=== PATIENT | male | born 1985 | race Caucasian/White ===

== ENCOUNTER 2022-09-16 10:31 | Outpatient (REF) | payer OTHER, SELFPAY | END 2022-09-16 10:32 | disposition home or self-care (01) | LOC: HO.BBR 10:31 | PROVIDERS: PCP Internal Medicine; Visit Provider Internal Medicine Gastroenterology | DX: Z13.89 Encounter for screening for other disorder (principal) ==

== ENCOUNTER 2022-09-30 10:07 | Outpatient (REF) | payer OTHER, SELFPAY | END 2022-09-30 10:08 | disposition home or self-care (01) | LOC: HO.BBR 10:07 | PROVIDERS: Visit Provider Internal Medicine Gastroenterology | DX: Z13.89 Encounter for screening for other disorder (principal) ==

== ENCOUNTER 2022-11-09 13:05 | Outpatient (REF) | payer OTHER, SELFPAY | END 2022-11-09 13:06 | disposition home or self-care (01) | LOC: HO.BBR 13:05 | PROVIDERS: PCP Internal Medicine; Visit Provider Internal Medicine Gastroenterology | DX: Z13.89 Encounter for screening for other disorder (principal) ==

== ENCOUNTER 2022-11-24 08:01 | Outpatient (REF) | payer OTHER, SELFPAY | END 2022-11-24 08:02 | disposition home or self-care (01) | LOC: HO.BBR 08:01 | PROVIDERS: Visit Provider Internal Medicine Gastroenterology | DX: Z13.89 Encounter for screening for other disorder (principal) ==

== ENCOUNTER 2022-12-07 08:59 | Outpatient (REF) | payer OTHER, SELFPAY | END 2022-12-07 09:00 | disposition home or self-care (01) | LOC: HO.BBR 08:59 | PROVIDERS: Visit Provider Internal Medicine Gastroenterology | DX: Z13.89 Encounter for screening for other disorder (principal) ==

== ENCOUNTER 2023-02-09 10:06 | Outpatient (REF) | payer OTHER, SELFPAY | END 2023-02-09 10:07 | disposition home or self-care (01) | LOC: HO.BBR 10:06 | PROVIDERS: Visit Provider Internal Medicine Gastroenterology | DX: Z13.89 Encounter for screening for other disorder (principal) ==

== ENCOUNTER 2023-03-16 10:04 | Outpatient (REF) | payer OTHER, SELFPAY | END 2023-03-16 10:05 | disposition home or self-care (01) | LOC: HO.BBR 10:04 | PROVIDERS: Visit Provider Internal Medicine Gastroenterology | DX: Z13.89 Encounter for screening for other disorder (principal) ==